=== PATIENT | male | born 1980 | race Caucasian/White ===

== ENCOUNTER 2022-04-27 09:39 | Outpatient (CLI) | payer OTHER ==
[2022-04-27 19:14] VITALS: BP 120/76
--- NOTE | 2022-04-27 19:14 | SLEEP CARE CONSULTATION ---
Information from patient questionnaire entered by Shankar Olivera. I have reviewed and concur with the information entered by Shankar Olivera. This document represents the service I personally performed and the decisions made by me, Xander Estrada MD, [facility]. History of Present Illness Service Date and Time: 04/27/2022 0939 Reason for Visit: New patient (PT ON CPAP NEED SD CARD) Chief Complaint: reports: Unrefreshed sleep, Excessive daytime sleepiness, Fatigue, Frequent awakenings at night, Other (UPDATE SUPPLIES SEATAC LOST PT CPAP) Date of Onset: 2014 Usual bedtime: 10PM Time it takes to fall asleep: 1HR Snores at night: Yes Observed to quit breathing while asleep: Yes Sleeps alone due to snoring: No Number of times waking at night: 3-4 Reasons for waking at night: reports: Other (UNKNOWN REASONS ) Toss, Turn, or Twitch while sleeping: Yes Recalls having dreams: No Usually gets out of bed at: 6AM Feels refreshed in the morning: No Morning headache: No Sleepy or fatigued during the day: Yes Ever fallen asleep while driving: No Takes day naps: No Dreams during day naps: No Prior sleep studies: Yes ([facility] 2016) Additional HPI information: I had the pleasure of seeing Mr. Gottlieb today regarding obstructive sleep apnea-hypopnea. As you know, he is a 41-year-old gentleman who was diagnosed with the sleep-disordered breathing at [facility] in [place]. The report is not available. He was prescribed a CPAP which he recently lost at [employer] a month ago. The ResMed AirSense came from [employer] medical supplier. He has been getting supplies through [facility], [place]. He reports significant improvement on CPAP. With his CPAP, she snores loudly, wakes up choking, and feels sleepy during the day. He would like to get back on the treatment as soon as possible. Since his sleep study in 2016, he has lost 20 lbs. - Parasomnia Symptoms Ever been unable to move upon waking from sleep: No Walks in sleep: No Talks in sleep: No Ever acted out dreams in sleep: No Ever felt weak in the knees when startled or emotional: No Bothered by creepy, crawly, restless sensations in legs: No Problems with memory or concentration: No Subjective Initial [place] Sleepiness Scale score: 14 (04/27/22) Social History The patient's occupation is a AM. Patient is and lives in . Have you smoked in the past 12 months: No Years of smokin Alcohol use: Yes Alcohol amount and frequency: 2 BEERS 1 X A MONTH Caffeine use: Yes Caffeine amount and frequency: 2 TWICE A DAY Family History Family history of sleep disordered breathing: No Allergies and Home Medications Known drug allergies: No Drug allergies reviewed: Yes Home medication list reviewed: Yes Review of Systems Weight loss over past 5 years: 20 Cardiovascular: denies: high blood pressure, palpitations, chest pain, irregular heart rate or pulse, leg or foot swelling, have to sleep sitting up, other Respiratory: denies: shortness of breath, wheeze, sputum production, chronic cough, other Gastrointestinal: reports: heartburn Urinary: denies: incontinence, frequency, urgency, impotence, other Neurological: denies: headaches, seizure, head trauma, disorientation, speech dysfunction, gait or balance problems, fainting or unconsciousness, other Psychiatric: denies: Attention Deficit Hyperactivity, anxiety, depression, mood disorder, claustrophobia, other Ear/Nose/Throat: denies: nasal congestion, sinus problems, nose bleeds, dry mouth/throat, hoarseness, injury to nose, tonsillectomy, wisdom teeth removed, other Endocrine: denies: thyroid disease, history of goiter, sluggishness, too hot or cold, excessive thirst, increased appetite, increased urination, unexplained weakness, other Musculoskeletal: denies: joint pain, neck pain, back pain, joint swelling, musc le pain or cramping, mobility problems, other Immunologic: denies: sneezing, rash, itching, allergies to food or environment, other Physical Exam Vital signs obtained and entered by: SHANKAR Caro MA Blood Pressure: 120/76 (LEFT ARM) Cuff size: regular Heart Rate: 90 O2 Saturation: 97 Height: 5 ft 7 in Weight: 189 lb 12.8 oz Body Mass Index: 29.7 BMI Classification: Overweight Neck circumference: 16.75 Mood/affect: Normal HEENT: No craniofacial malformation Nostrils: patent to airflow Turbinates: normal Septum: midline Mouth and throat: narrow oropharynx Soft palate: long Hard palate: normal Uvula: long Uvula visualization: 50% Mallampati Class II Tongue: normal in size Tonsils: small Chin and jaw: normal size and position Neck: normal w/o lymphadenopathy or thyromegaly Heart: regular rate and rhythm Lungs: clear bilaterally Extremities: no edema or clubbing Neurologic: intact Impression and Plan IMPRESSION: 1. Obstructive Sleep Apnea-Hypopnea Syndrome, as previously diagnosed, but untreated due to loss of equipment. We will have to repeat the in-laboratory polysomnography to confirm the diagnosis. Plan: 1. Schedule polysomnography. 2. Avoid long distance driving or when feeling sleepy. 3. Avoid alcohol, sedative and muscle relaxant around bedtime. 4. Attempt to lose weight. 5. Return for follow up after the sleep study. Follow up with Sleep Care in: 1-2 months Visit Type: In Office Time Spent with Patient (minutes): 15 Provider Statement: I spent 100% of the Face to Face Visit with the patient with greater than 50% spent counseling the patient and coordination of care.
== END 2022-04-27 09:40 | disposition home or self-care (01) ==
LOC: SC 09:39
PROVIDERS: ATTEND Internal Medicine Pulmonary Disease
DX: G47.33 Obstructive sleep apnea (adult) (pediatric) (principal)
CPT/HCPCS: 99202; 99212

== ENCOUNTER 2022-05-11 20:21 | Outpatient (CLI) | payer OTHER | END 2022-05-11 20:22 | disposition home or self-care (01) | LOC: SC 20:21 | PROVIDERS: ATTEND Nurse Practitioner Family | DX: G47.33 Obstructive sleep apnea (adult) (pediatric) (principal); G47.61 Periodic limb movement disorder | CPT/HCPCS: 95810 ==

== ENCOUNTER 2022-05-18 13:30 | Outpatient (CLI) | payer OTHER ==
[2022-05-18 19:30] VITALS: BP 130/80
--- NOTE | 2022-05-18 19:30 | SLEEP CARE CONSULTATION ---
Information from patient questionnaire entered by Shankar Olivera. I have reviewed and concur with the information entered by Shankar Olivera. This document represents the service I personally performed and the decisions made by me, Xander Estrada MD, [facility]. History of Present Illness Service Date and Time: 05/18/2022 1330 Initial [place] Sleepiness Scale score: 14 (04/27/22) Current [place] Sleepiness Scale score: 16 (05/18/22) Additional HPI information: Mr. Gottlieb returned for follow up of the sleep study he had on 05/11/22. The polysomnography showed that the patient had slightly reduced sleep efficiency due to sleep onset insomnia. The sleep architecture was abnormal for sleep fragmentation and reduced amount of time spent in REM and slow wave sleep (N3). Respiratory monitoring showed severe obstructive sleep apnea-hypopnea (AHI = 56.4) associated with frequent arousals, oxyhemoglobin desaturation and mild hypoxia (joseph oxygen saturation of 82%). The respiratory events occurred more frequently during supine sleep (supine AHI = 91.6; non-supine = 39.64). Snore was moderate to loud in intensity. There was moderate periodic limb movement of sleep contributing to the sleep fragmentation. Cardiac rhythm was normal sinus rhythm without significant arrhythmia. No abnormal behavior (parasomnia) observed during the night. The patient was informed of these findings. I explained to him the pathophysiology behind obstructive sleep apnea. We then spent quite a bit of time discussing different treatment options. For mild obstructive sleep apnea, surgery and oral appliance are alternatives to nasal CPAP therapy but in moderate or severe cases, nasal CPAP is the most effective and reliable treatment. Weight loss in an obese individual is strongly recommended. After some discussion, he opted to get back of the CPAP therapy. He recently lost his machine at [place] [employer]. Sleep Study - Results Type of Sleep Study: Polysomnography (COMPLETED 05/11/22) Prior sleep studies: Yes ([facility] 2016) Allergies and Home Medications Drug allergies reviewed: Yes Home medication list reviewed: Yes Physical Exam Vital signs obtained and entered by: SHANKAR Caro MA Blood Pressure: 130/80 (LEFT ARM) Cuff size: regular Heart Rate: 86 O2 Saturation: 97 Height: 5 ft 7 in Weight: 195 lb 3.2 oz Body Mass Index: 30.5 BMI Classification: Obese Impression and Plan IMPRESSION: 1. Obstructive Sleep Apnea-Hypopnea Syndrome, severe, associated with mild hypoxemia and sleep fragmentation. Obviously this is the cause of the patients symptoms of nocturnal choking, frequent awakenings, unrefreshed sleep, and excessive daytime sleepiness. As mentioned above, the patient will be started on an autoCPAP set between 5 - 15 cmH2O (he cannot remember his old setting). Depending on his response and compliance he may be brought back for an overnight CPAP titration study. PLAN: 1. Prescription made for an autoCPAP, heated humidifier, and related supplies through his previous supplier [email or web address]. 2. Attempt to lose weight and avoid alcohol consumption near bedtime. 3. Return for follow up after one month of using the CPAP. Prescriptions: Auto CPAP Follow up with Sleep Care in: 1-2 months Visit Type: In Office Time Spent with Patient (minutes): 15 Provider Statement: I spent 100% of the Face to Face Visit with the patient with greater than 50% spent counseling the patient and coordination of care.
== END 2022-05-18 13:31 | disposition home or self-care (01) ==
LOC: SC 13:30
PROVIDERS: ATTEND Internal Medicine Pulmonary Disease
DX: G47.33 Obstructive sleep apnea (adult) (pediatric) (principal); R09.02 Hypoxemia; E66.9 Obesity, unspecified; Z68.30 Body mass index [BMI] 30.0-30.9, adult
CPT/HCPCS: 99212